=== PATIENT | male | born 1995 | race African-American/Black ===

== ENCOUNTER 2022-06-06 17:57 | Emergency (ER) | payer BC, OTHER ==
[~2022-06-06] VITALS: Ht 177.8 cm; Wt 68.0 kg
[2022-06-06 18:15] VITALS: BP 125/68
[2022-06-06 19:13] LABS: CHLORIDE 104 mEq/L (98-107)
[2022-06-06 19:14] LABS: BASOPHILS % 0.5 % (0.0-2.0); EOSINOPHILS % 4.1 % (0.0-5.0); HEMATOCRIT. 28.1 % (42.0-52.0); HEMOGLOBIN. 9.5 g/dL (14.0-18.0); LYMPHOCYTES % 18.5 % (20.0-50.0); MEAN CORPUSCULAR HEMOGLOBIN 34.4 pg (28.0-32.0); MEAN CORPUSCULAR VOLUME 102.1 fL (80.0-94.0); MEAN PLATELET VOLUME 8.4 fl (7.4-10.4); MONOCYTES % 11.3 % (2.0-8.0); NEUTROPHILS % 65.6 % (40.0-76.0); PLATELET 236 x1000/uL (130-400); RED BLOOD CELL COUNT 2.75 mill/uL (4.7-6.1); RED CELL DISTRIBUTION WIDTH 14.3 % (11.6-14.6)
[2022-06-06 19:20] LABS: ETHANOL BLOOD < 10 mg/dL
== END 2022-06-06 21:30 | disposition home or self-care (01) ==
LOC: ER 20:21
DX: F41.0 Panic disorder [episodic paroxysmal anxiety] (principal); J45.909 Unspecified asthma, uncomplicated
CPT/HCPCS: 36415; 80053; 80320; 85025; 99283; G0480

== ENCOUNTER 2022-08-04 18:57 | Emergency (ER) | payer OTHER ==
[~2022-08-04] VITALS: Ht 182.9 cm; Wt 60.0 kg
[2022-08-04 18:58] VITALS: BP 132/85; PULSE 116; RESP 16; TEMP 98.4; O2SAT 100
== END 2022-08-04 19:30 | disposition left against medical advice (07) ==
LOC: ER 18:57
DX: Z53.21 Procedure and treatment not carried out due to patient leaving prior to being seen by health care provider (principal)
CPT/HCPCS: 99281

== ENCOUNTER 2022-11-05 15:16 | Emergency (ER) | payer OTHER ==
[~2022-11-05] VITALS: Ht 177.8 cm; Wt 70.0 kg
[2022-11-05 15:24] VITALS: BP 132/84; PULSE 86; RESP 18; TEMP 98.1; O2SAT 99
== END 2022-11-05 19:07 | disposition left against medical advice (07) ==
LOC: ER 15:16
DX: M79.603 Pain in arm, unspecified (principal); Z53.21 Procedure and treatment not carried out due to patient leaving prior to being seen by health care provider
CPT/HCPCS: 99281

== ENCOUNTER 2022-12-17 06:36 | Emergency (ER) | payer OTHER ==
[~2022-12-17] VITALS: Ht 172.7 cm; Wt 59.0 kg
[2022-12-17 06:38] VITALS: BP 132/76; PULSE 104; RESP 17; TEMP 97.4; O2SAT 98
[2022-12-17] MEDS ORDERED: IBUPROFEN 600MG TABLET PO ONE (08:45)
== END 2022-12-17 10:37 | disposition left against medical advice (07) ==
LOC: ER 06:36
DX: S62.337A Displaced fracture of neck of fifth metacarpal bone, left hand, initial encounter for closed fracture (principal); J45.909 Unspecified asthma, uncomplicated; I10 Essential (primary) hypertension; W19.XXXA Unspecified fall, initial encounter; Y93.89 Activity, other specified; Y92.89 Other specified places as the place of occurrence of the external cause; Y99.8 Other external cause status
CPT/HCPCS: 73130; 99283

== ENCOUNTER 2022-12-17 17:46 | Emergency (ER) | payer OTHER ==
[~2022-12-17] VITALS: Ht 182.9 cm; Wt 55.0 kg
[2022-12-17 17:49] VITALS: BP 150/92; PULSE 104; RESP 18; TEMP 98.3; O2SAT 99
== END 2022-12-17 21:50 | disposition left against medical advice (07) ==
LOC: ER 17:46
DX: S69.92XA Unspecified injury of left wrist, hand and finger(s), initial encounter (principal); J45.909 Unspecified asthma, uncomplicated; I10 Essential (primary) hypertension; Y08.89XA Assault by other specified means, initial encounter; Y93.89 Activity, other specified; Y92.89 Other specified places as the place of occurrence of the external cause; Y99.8 Other external cause status
CPT/HCPCS: 99283

== ENCOUNTER 2024-10-14 11:56 | Emergency (ER) | payer OTHER ==
[~2024-10-14] VITALS: Ht 177.8 cm; Wt 77.0 kg
[2024-10-14 11:59] VITALS: O2SAT 98
[2024-10-14] MEDS: ACETAMINOPHEN 325MG TABLET PO NR (12:13)
[2024-10-14] MEDS: BACITRACIN ZINC OINT UDPKT TOP ONE (13:13)
[2024-10-14] MEDS: KETOROLAC 15MG/ML VIAL IM ONE (13:14)
[2024-10-14] MEDS: LIDOCAINE HCL/EPINEPHRINE 1%-EPI 1:100,000 20ML VIAL INFIL ONE (13:14)
[2024-10-14] MEDS ORDERED: HYDR-4001 MT (16:46)
[2024-10-14] MEDS ORDERED: CEPH500T MT (16:46)
[2024-10-14] MEDS ORDERED: IBUP-2029 MT (16:46)
[2024-10-14] MEDS ORDERED: BO1 TP (16:46)
[2024-10-14 17:10] VITALS: BP 109/54; PULSE 65; RESP 18; TEMP 36.8; O2SAT 98
== END 2024-10-14 17:17 | disposition home or self-care (01) ==
LOC: ER 11:56
DX: S51.812A Laceration without foreign body of left forearm, initial encounter (principal); J45.909 Unspecified asthma, uncomplicated; I10 Essential (primary) hypertension; E11.9 Type 2 diabetes mellitus without complications; W25.XXXA Contact with sharp glass, initial encounter; Y93.89 Activity, other specified; Y92.89 Other specified places as the place of occurrence of the external cause; Y99.8 Other external cause status
CPT/HCPCS: 73090; 12002; 12035; 96372; 99285; J1885; J2004; Z7610 ×2; 12006; 12036